=== PATIENT | female | born 1940 | race Native Hawaiian/Other Pacific Islander ===

== ENCOUNTER 2016-03-26 09:14 | Outpatient (CLI) | payer OTHER ==
[~2016-03-26 09:14] MED LIST: ADLT ASA LOW81 MG PO; ALPR0.5T24 PO; BENICAR HCT1 TAB PO; CLARITIN10 M1 PO; DULO60CA2 PO; ESTRACE0.5 MG PO; METF500T PO; ONGLYZA2.5 MG OR
[2016-03-26 09:37] LABS: PLATELET COUNT 402 K/uL (152-353)
[2016-03-26 11:09] LABS: SODIUM 136 mmol/L (136-145)
== END 2016-03-26 19:52 | disposition home or self-care (01) ==
LOC: LABW 09:14
PROVIDERS: Nurse Practitioner
DX: Z12.31 Encounter for screening mammogram for malignant neoplasm of breast (principal); E11.9 Type 2 diabetes mellitus without complications; R53.83 Other fatigue; E78.00 Pure hypercholesterolemia, unspecified; E55.9 Vitamin D deficiency, unspecified; I10 Essential (primary) hypertension
CPT/HCPCS: 36415; 80053; 80061; 82043; 82306; 82570; 83036; 84443; 85027; G0202-TC

== ENCOUNTER 2016-05-03 18:01 | Emergency (ER) | payer OTHER ==
[~2016-05-03] VITALS: Ht 162.6 cm; Wt 65.8 kg
[2016-05-03] MEDS ORDERED: FERROUS SULF325 MG PO (18:53)
[2016-05-03] MEDS ORDERED: NORGEST/ETH1 OR (18:54)
[2016-05-03] MEDS ORDERED: MECLIZINE25 MG OR (18:55)
[2016-05-03] MEDS ORDERED: CELEBREX100 MG PO (18:56)
[2016-05-03] MEDS ORDERED: DIOVAN HCT PO (18:56)
[2016-05-03] MEDS ORDERED: ONGLYZA2.5 MG OR (18:57)
[2016-05-03] MEDS ORDERED: OMEP40CA PO (18:58)
[2016-05-03] MEDS ORDERED: MEDR2.5T19 PO (18:59)
[2016-05-03 19:33] LABS: PLATELET COUNT 372 K/uL (152-353)
[2016-05-03 19:37] LABS: POTASSIUM 3.9 mmol/L (3.6-5.2); SODIUM 132 mmol/L (136-145)
[2016-05-03 20:26] VITALS: BP 190/73; TEMP 97.9
== END 2016-05-03 20:26 | disposition home or self-care (01) ==
LOC: ED 18:01
DX: J44.9 Chronic obstructive pulmonary disease, unspecified (principal); F41.8 Other specified anxiety disorders; D72.828 Other elevated white blood cell count; E11.9 Type 2 diabetes mellitus without complications; I10 Essential (primary) hypertension
CPT/HCPCS: 36415; 36600; 80053; 82550; 82805; 83880; 84484; 85027; 93005; 99283

== ENCOUNTER 2016-05-07 14:46 | Outpatient (CLI) | payer OTHER ==
[~2016-05-07 14:46] MED LIST changes: +CELEBREX100 MG PO; +DIOVAN HCT PO; +FERROUS SULF325 MG PO; +MECLIZINE25 MG OR; +MEDR2.5T19 PO; +NORGEST/ETH1 OR; +OMEP40CA PO
[2016-05-07 15:29] LABS: PLATELET COUNT 394 K/uL (152-353)
[2016-05-07 15:55] LABS: POTASSIUM 3.9 mmol/L (3.6-5.2); SODIUM 133 mmol/L (136-145)
== END 2016-05-07 19:55 | disposition home or self-care (01) ==
LOC: LAB 14:46
PROVIDERS: Nurse Practitioner Family
DX: E11.9 Type 2 diabetes mellitus without complications (principal); E78.4 Other hyperlipidemia; I10 Essential (primary) hypertension
CPT/HCPCS: 80053; 80061; 83036; 84439; 84443; 85027

== ENCOUNTER 2016-08-07 07:45 | Outpatient (CLI) | payer OTHER ==
[~2016-08-07] VITALS: Ht 165.1 cm; Wt 61.2 kg
== END 2016-08-07 10:00 | disposition home or self-care (01) ==
LOC: NM 07:45
DX: E10.9 Type 1 diabetes mellitus without complications (principal); I10 Essential (primary) hypertension; R53.83 Other fatigue
CPT/HCPCS: A9500

== ENCOUNTER 2016-08-28 15:55 | Emergency (ER) | payer OTHER ==
[~2016-08-28] VITALS: Ht 162.6 cm; Wt 68.0 kg
[2016-08-28 16:07] VITALS: BP 160/82; TEMP 98.6
[2016-08-28] MEDS ORDERED: ALPR0.5T24 PO (16:07)
== END 2016-08-28 16:35 | disposition home or self-care (01) ==
LOC: ED 15:55
DX: S90.31XA Contusion of right foot, initial encounter (principal); W22.8XXA Striking against or struck by other objects, initial encounter; Y92.098 Other place in other non-institutional residence as the place of occurrence of the external cause
CPT/HCPCS: 99282

== ENCOUNTER 2017-08-22 02:48 | Emergency (ER) | payer OTHER ==
[~2017-08-22] VITALS: Ht 165.1 cm; Wt 65.8 kg
[2017-08-22 03:30] LABS: PLATELET COUNT 417 K/uL (152-353)
[2017-08-22 03:35] LABS: POTASSIUM 3.7 mmol/L (3.6-5.2)
[2017-08-22 06:42] VITALS: BP 153/87; TEMP 97.6
== END 2017-08-22 06:46 | disposition home or self-care (01) ==
LOC: ED 02:48
DX: R42 Dizziness and giddiness (principal); R11.2 Nausea with vomiting, unspecified
CPT/HCPCS: 80053; 81000; 84484; 85027; 93005; 96365; 96374; 96375; 99284; J2405; J7120

== ENCOUNTER 2018-07-03 08:00 | Outpatient (CLI) | payer OTHER | END 2018-07-03 23:08 | disposition home or self-care (01) | LOC: NM 08:00 | DX: R06.02 Shortness of breath (principal); R07.89 Other chest pain | CPT/HCPCS: 93306; A9500; J2785 ==

== ENCOUNTER 2018-07-16 08:31 | Outpatient (CLI) | payer OTHER | END 2018-07-16 20:02 | disposition home or self-care (01) | LOC: MAMMO 08:31 | DX: Z12.31 Encounter for screening mammogram for malignant neoplasm of breast (principal); N64.59 Other signs and symptoms in breast; G44.89 Other headache syndrome ==

== ENCOUNTER 2020-02-02 10:54 | Outpatient (CLI) | payer OTHER | END 2020-02-02 19:57 | disposition home or self-care (01) | LOC: CT 10:54 | PROVIDERS: ATTEND Internal Medicine | DX: H53.8 Other visual disturbances (principal) ==